=== PATIENT | female | born 1985 | race Caucasian/White ===

== ENCOUNTER 2016-08-29 07:58 | Day surgery (SDC) | payer MEDICAID ==
[2016-04-24 14:05] VITALS: BMI 32.3
[2016-08-29] VITALS (16 sets, daily range): BP systolic 107–138; BP diastolic 61–75; PULSE 70–99; RESP 11–20; Ht 162.6 cm; Wt 79.0 kg
[~2016-08-29] VITALS: Ht 162.6 cm; Wt 79.0 kg
[~2016-08-29 07:58] MED LIST: LACTATED RINGER'S 1,000 ML IV SCH; MIDAZOLAM 1 MG/ML 2 ML INJ ONE; PROPOFOL 20 ML ONE
[2016-08-29 09:59] LABS: ADD SCAN DIFF NO
[2016-08-29 10:21] LABS: BASOPHILS % 0.7 % (0.0-2.0); EOSINOPHILS # 0.1 10^3/ul (0.0-0.5); EOSINOPHILS % 1.4 % (0.0-7.0); HEMATOCRIT 36.3 % (37.0-47.0); HEMOGLOBIN 12.1 g/dl (12.0-16.0); LYMPHOCYTES # 1.9 10^3/ul (0.8-2.9); LYMPHOCYTES % 33.8 % (15.0-51.0); MEAN CORPUSCULAR HEMOGLOBIN 30.1 pg (29.0-33.0); MEAN CORPUSCULAR HGB CONC 33.3 g/dl (32.0-37.0); MEAN CORPUSCULAR VOLUME 90.3 fl (82.0-101.0); MEAN PLATELET VOLUME 12.4 fl (7.4-10.4); MONOCYTE # 0.4 10^3/ul (0.3-0.9); MONOCYTES % 7.6 % (0.0-11.0); NEUTROPHIL # 3.1 10^3/ul (1.6-7.5); NEUTROPHILS % 56.1 % (39.0-77.0); PLATELET COUNT 254 10^3/UL (140-415); RED BLOOD COUNT 4.02 10^6/ul (4.20-5.40); WHITE BLOOD COUNT 5.6 10^3/ul (4.8-10.8)
[2016-08-29] MEDS ORDERED: OXYCODONE/ACETAMINOPHEN (5/325) TAB PO PRN ×3 (11:30→13:00)
[2016-08-29] MEDS ORDERED: ONDANSETRON 4 MG INJ IV PRN ×2 (11:30→13:00)
[2016-08-29] MEDS ORDERED: HYDROmorphONE (0.2 MG/ML) 10ML SYG IV PRN (11:30)
[2016-08-29] MEDS ORDERED: TRIMETHOBENZAMIDE 100 MG/ML VIAL IM PRN (11:30)
[2016-08-29] MEDS ORDERED: FENTAnyl 50 MCG/ML VIAL IV PRN (11:30)
[2016-08-29] MEDS ORDERED: MEPERIDINE 25 MG INJ IV PRN (11:30)
[2016-08-29] MEDS ORDERED: PROCHLORPERAZINE 10 MG INJ IV PRN (11:30)
[2016-08-29] MEDS ORDERED: DIPHENHYDRAMINE 50 MG INJ IV PRN (11:30)
[2016-08-29] MEDS ORDERED: LIDOCAINE 2% (SDV) 5 ML INJ ONE (11:39)
[2016-08-29] MEDS ORDERED: SUCCINYLCHOLINE CHLORIDE 100 MG/5 ML SYG IV ONE (11:39)
[2016-08-29] MEDS ORDERED: ROCURONIUM 50 MG INJ ONE (11:39)
[2016-08-29] MEDS ORDERED: PROPOFOL 20 ML ONE (11:39)
[2016-08-29] MEDS ORDERED: MIDAZOLAM 1 MG/ML 2 ML INJ ONE (11:39)
[2016-08-29] MEDS ORDERED: FENTAnyl 50 MCG/ML VIAL ONE ×2 (11:39→12:31)
[2016-08-29] MEDS ORDERED: DEXAMETHASONE 4 MG/ML 1 ML INJ ONE (11:51)
[2016-08-29] MEDS ORDERED: ONDANSETRON 4 MG INJ ONE (11:51)
[2016-08-29] MEDS ORDERED: CEFAZOLIN 1 GM INJ ONE (11:55)
--- NOTE | 2016-08-29 12:22 | PREOPHP ---
DATE OF ADMISSION: 08/29/2016 HISTORY OF PRESENT ILLNESS: A 30-year-old female 2, para 2, last menstrual period 7 is admitted for voluntary sterilization. PAST MEDICAL HISTORY: Unremarkable. PAST SURGICAL HISTORY: Unremarkable. ALLERGIES: PENICILLIN. FAMILY HISTORY: Diabetes. PHYSICAL EXAMINATION: VITAL SIGNS: The patient is afebrile. Vital signs stable. HEAD/ NECK: Within normal limits. CHEST: Within normal limits. ABDOMEN: Soft, nontender and nondistended. PELVIC: Normal. EXTREMITIES: Within normal limits. NEUROLOGIC: Within normal limits. IMPRESSION: Voluntary sterilization. PLAN: Minilaparotomy, bilateral tubal ligation. Risks, benefits and alternatives of the procedure were explained to the patient. The patient has been counseled about all of her contraceptive option s including all methods of sterilization. It was explained to the patient that with bilateral tubal ligation there is a chance of failure resulting in ectopic and/or intrauterine . After counseling, the patient said she understood and gave informed consent for the procedure. Dictated By: MARLEE MCCORMICK/JIGNESH Conf#: [id number] DID#: [id number]
[2016-08-29] MEDS ORDERED: BUPIVACAINE 0.5%/EPI (SDV) 30 ML INJ INJ ONE (12:25)
[2016-08-29] MEDS ORDERED: KETOROLAC 30 MG INJ ONE (12:30)
[2016-08-29] MEDS ORDERED: NEOSTIGMINE 3 MG/3 ML SYRINGE ONE (12:31)
[2016-08-29] MEDS ORDERED: GLYCOPYRROLATE 0.4 MG INJ ONE (12:31)
[2016-08-29] MEDS ORDERED: morphine 2 MG INJ IV PRN (13:00)
[2016-08-29] MEDS ORDERED: KETOROLAC 30 MG INJ IV PRN (13:00)
[2016-08-29] MEDS: HYDROmorphONE (0.2 MG/ML) 10ML SYG IV PRN ×5 (13:14→13:52)
--- NOTE | 2016-08-29 13:31 | OPR ---
DATE OF OPERATION: 08/29/2016 PREOPERATIVE DIAGNOSIS: Voluntary sterilization. POSTOPERATIVE DIAGNOSIS: Voluntary sterilization. OPERATION PERFORMED: Minilaparotomy, bilateral tubal ligation. SURGEON: Dr. Marlee Valladares. [employer]: technical clerk. ANESTHESIA: General. PROCEDURE: The patient was taken to the operating room and placed on the operating table in supine position. After adequate general anesthesia was given, the area was prepared and draped in the usua l sterile fashion. Using a scalpel, a Pfannenstiel incision was made about 2 fingerbreadths above the symphysis pubis. The incision was carried down to the fascia. The fascia was incised and extended bilaterally with Bovie. Two Kochers were used to separate the fascia from the muscle. The muscle was dissected down to peritoneum. The peritoneum was secured with 2 Kellys and incised with Metzenbaum scissors. Upo n entering the peritoneal cavity, the right fallopian tube was grasped with a Mo clamp and foll owed to its fimbrial end to confirm its identity. Using 0 plain suture ligature, a 5-cm segment of the right fallopian tube was doubly ligated. Using Metzenbaum scissors, a portion of the right fall opian tube above the ligated area was excised and sent to pathology. Same procedure was repeated on the left fallopian tube. After assuring hemostasis, the muscle was reapproximated with 0 chromic. The fascia was closed with 0 Vicryl continuous. Subcutaneous tissue was reapproximated with 2-0 ch romic. Skin was closed with torin. ESTIMATED BLOOD LOSS: Minimal. COMPLICATIONS: None. COUNTS: All counts were correct. Dictated By: MARLEE MCCORMICK/JIGNESH Conf#: [id number] DID#: [id number]
== END 2016-08-29 16:20 | disposition home or self-care (01) ==
LOC: SDS 07:58
PROVIDERS: ATTEND Obstetrics & Gynecology
DX: Z30.2 Encounter for sterilization (principal); N83.8 Other noninflammatory disorders of ovary, fallopian tube and broad ligament
CPT/HCPCS: 58600; 85025; 86850; 86900; 86901; 88302; J0330; J0690; J1100; J1170; J1885; J2250; J2405; J2710; J3010; Z7512; Z7610